=== PATIENT | female | born 1990 | race Caucasian/White ===

== ENCOUNTER 2018-03-16 19:22 | Emergency (ER) | payer BC ==
[~2018-03-16] VITALS: Ht 157.4 cm; Wt 68.0 kg
[~2018-03-16 19:22] MED LIST: CIPRO250 MG PO; HYDROCODONE BIT1 T11 PO; IBU-8800 MG PO; ZOVIRAX800 MG PO
[2018-03-16] MEDS ORDERED: NAPROSYN500 MG PO (19:30)
[2018-03-16] MEDS ORDERED: SEPTDS PO (19:30)
[2018-03-16] MEDS ORDERED: KEFLEX500 M1 PO (19:30)
== END 2018-03-16 19:31 | disposition home or self-care (01) ==
LOC: ED 19:22
DX: L02.415 Cutaneous abscess of right lower limb (principal); R03.0 Elevated blood-pressure reading, without diagnosis of hypertension; Z79.899 Other long term (current) drug therapy

== ENCOUNTER 2020-02-01 12:33 | Emergency (ER) | payer BC ==
[~2020-02-01] VITALS: Ht 152.4 cm; Wt 72.6 kg
[~2020-02-01 12:33] MED LIST changes: +KEFLEX500 M1 PO; +NAPROSYN500 MG PO; +SEPTDS PO
[2020-02-01 13:08] LABS: BASO % 0.3 % (0.0-1.0); EOS # 0.3 10*3/uL (0.0-0.4); EOS % 2.5 % (1.0-4.0); HEMATOCRIT 46.6 % (37.0-47.0); LYMPH # 3.4 10*3/uL (1.3-4.4); LYMPH % 27.5 % (27.0-41.0); MEAN CELL VOLUME 88.4 fl (81.0-99.0); MEAN CORPUSCULAR HGB 29.6 pg (27.0-31.0); MEAN CORPUSCULAR HGB CONC 33.5 g/dl (33.0-37.0); MEAN PLATELET VOLUME 11.3 fl (9.6-12.3); MONO # 0.5 10*3/uL (0.1-1.0); MONO % 3.9 % (3.0-9.0); NEUT # 8.1 10*3/uL (2.3-7.9); NEUT % 65.6 % (47.0-73.0); PLATELET COUNT AUTOMATED 326 10*3/uL (130-400); RED BLOOD COUNT 5.27 10*6/uL (4.10-5.10); RED CELL DISTRI WIDTH 12.2 % (0-14.5); WHITE BLOOD COUNT 12.3 10*3/uL (4.8-10.8)
[2020-02-01 13:19] LABS: BILIRUBIN NEGATIVE (NEGATIVE); BLOOD 3+ (NEGATIVE); CLARITY CLOUDY (CLEAR); COLOR YELLOW (YELLOW); GLUCOSE NEGATIVE (NEGATIVE); KETONE TRACE (NEGATIVE)
[2020-02-01 13:20] LABS: LEUKO ESTERASE TRACE (NEGATIVE); NITRITE NEGATIVE (NEGATIVE); UROBILINOGEN 0.2 E.U./dl (0.2-1.0)
[2020-02-01 13:25] LABS: ALBUMIN 3.6 gm/dl (3.1-4.5); ALKALINE PHOSPHATASE 137 U/L (45-117); BUN 14 mg/dl (7-24); CHLORIDE 107 mmol/L (98-107); CREATININE 0.91 mg/dL (0.55-1.02); LIPASE 71 U/L (73-393); POTASSIUM 3.7 mmol/L (3.5-5.1); SGOT/AST 20 IU/L (3-35); SGPT/ALT 32 U/L (12-78); SODIUM 138 mmol/L (136-145)
[2020-02-01 13:28] LABS: B-hCG (QUALITATIVE) NEGATIVE (NEGATIVE)
[2020-02-01 13:30] LABS: CALCIUM OXALATE CRYSTALS TRACE; EPITHELIAL CELLS 21-30; WBC 16-20 wbc/hpf (0-5)
[2020-02-01 13:31] LABS: BACTERIA 4+
[2020-02-01] MEDS ORDERED: CIPRO500 MG PO (16:49)
[2020-02-01] MEDS ORDERED: FLAGYL500 MG PO (16:49)
== END 2020-02-01 16:49 | disposition home or self-care (01) ==
LOC: ED 12:33
PROVIDERS: Physician Assistant
DX: K52.9 Noninfective gastroenteritis and colitis, unspecified (principal); F17.200 Nicotine dependence, unspecified, uncomplicated; Z79.899 Other long term (current) drug therapy